=== PATIENT | male | born 1970 | race Caucasian/White ===

== ENCOUNTER 2016-05-19 20:44 | Emergency (ER) | payer OTHER ==
--- NOTE | 2016-05-19 22:02 | ED PDOC ---
HPI: General Adult Time Seen by Provider: 05/19/16 21:25 Chief Complaint (Nursing): Abdominal Pain Chief Complaint (Provider): Right-Sided Flank Pain History Per: Patient History/Exam Limitations: no limitations Current Symptoms Are (Timing): Better Additional Complaint(s): 21:25 Moiz Katz is a 46 year old male that presents to the ED with a chief complaint of right sided flank pain that began to resolve prior to ED visit. Patient states that his pain also radiated to his right groin, and that he noticed the pain after he urinated, along with associated nausea and chills, but denies any hematuria, dysuria, or vomiting. He also reports that the pain has currently resolved completely. PMD: Kalin Lilly I Past Medical History Reviewed: Historical Data, Nursing Documentation, Vital Signs Vital Signs: Last Vital Signs Temp 98.4 F 05/20/16 00:35 Pulse 60 05/20/16 00:35 Resp 18 05/20/16 00:35 BP 112/71 05/20/16 00:35 Pulse Ox 99 05/20/16 00:35 - Family History Family History: States: Unknown Family Hx - Home Medications Home Medications: Ambulatory Orders Medication Instructions Recorded Ibuprofen [Motrin Tab] 600 mg PO Q6 #30 tab 05/20/16 - Allergies Allergies/Adverse Reactions: Allergies Allergy/AdvReac Type Severity Reaction Status Date / Time No Known Allergies Allergy Verified 05/19/16 21:12 Review of Systems Constitutional: Positive for: Chills, Other ((all of these symptoms have resolved)) Gastrointestinal: Positive for: Nausea. Negative for: Vomiting Genitourinary Male: Negative for: Dysuria, Hematuria Musculoskeletal: Positive for: Other (right sided flank pain and right sided groin pain) Physical Exam - Reviewed Nursing Documentation Reviewed: Yes Vital Signs Reviewed: Yes - Physical Exam Appears: Positive for: Non-toxic, No Acute Distress Head Exam: Positive for: ATRAUMATIC, NORMOCEPHALIC Skin: Positive for: Normal Color, Warm Cardiovascular/Chest: Positive for: Regular Rate, Rhythm. Negative for: Murmur Respiratory: Positive for: Normal Breath Sounds. Negative for: Wheezing Gastrointestinal/Abdominal: Positive for: Soft. Negative for: Tenderness Back: Positive for: Normal Inspection. Negative for: L CVA Tenderness, R CVA Tenderness Extremity: Positive for: Tenderness Neurologic/Psych: Positive for: Alert, Oriented Medical Decision Making Medical Decision Making: Initial Impression: Resolving Kidney Stone Initial Plan: * Ibuprofen 600 g PO * Urinalysis * US Renal * Reevaluation 8: US renal impression: No evidence of hydronephrosis or other acute sonographic abnormality of the kidneys. 0015: Patient feeling better and will be discharged at this time. Scribe Attestation: Documented by Jeanne Boggs, acting as a scribe for Delmar Johnson MD. Provider Scribe Attestation: All medical record entries made by the Scribe were at my direction and personally dictated by me. I have reviewed the chart and agree that the record accurately reflects my personal performance of the history, physical exam, medical decision making, and the department course for this patient. I have also personally directed, reviewed, and agree with the discharge instructions and disposition. Disposition - Clinical Impression Clinical Impression: Flank pain - Patient ED Disposition Is Patient to be Admitted: No - Disposition Referrals: Miguel Osborne MD [Staff Provider] - Kalin Lilly MD [Family Provider] - Disposition: Routine/Home Disposition Time: 00:15 Condition: STABLE Prescriptions: Ibuprofen [Motrin Tab] 600 mg PO Q6 #30 tab Instructions: Kidney Stones (ED), Flank Pain (ED)
[2016-05-19 22:21] LABS: RBC URINE 36 /hpf (0-3); URINE BILIRUBIN NEGATIVE (NEGATIVE); URINE BLOOD SMALL (NEGATIVE); URINE COLOR YELLOW (YELLOW); URINE GLUCOSE (UA) 50 mg/dL (Normal); URINE KETONE 20 mg/dL (NEGATIVE); URINE LEUKOCYTE ESTERASE NEG Leu/uL (Negative); URINE PROTEIN 30 mg/dL (NEGATIVE); WBC URINE 5 /hpf (0-5)
--- NOTE | 2016-05-19 23:28 | US ---
EXAM: US Retroperitoneal Complete, Renal CLINICAL HISTORY: 46 years old, male; Pain; Other: Rt flank; Additional info: R flank pain, R/O stone TECHNIQUE: Real-time ultrasound of the retroperitoneum (complete) with image documentation. EXAM DATE/TIME: 05/19/2016 9:34 PM COMPARISON: No relevant prior studies available. FINDINGS: Right kidney: Within normal limits in appearance. Measures 10.3 cm in length. No evidence of hydronephrosis. No renal calculi are visible sonographically. Left kidney: Within normal limits in appearance. Measures 9.7 cm in length. No evidence of hydronephrosis. No renal calculi are visible sonographically. Aorta and IVC: Imaged portions appear unremarkable. Bladder: Incompletely distended, which limits evaluation. Grossly normal in appearance. IMPRESSION: No evidence of hydronephrosis or other acute sonographic abnormality of the kidneys. See above for remaining findings.
[2016-05-20 00:36] VITALS: BP 112/71; PULSE 60; RESP 18; TEMP 98.4; O2SAT 99
== END 2016-05-20 00:40 | disposition home or self-care (01) ==
LOC: H.ER 20:44
DX: N20.0 Calculus of kidney (principal); R10.9 Unspecified abdominal pain; R11.0 Nausea